=== PATIENT | female | born 1965 | race Caucasian/White ===

== ENCOUNTER → 2017-01-17 | Outpatient (CLI) | payer OTHER ==
--- NOTE | 2017-01-18 10:03 | MRI ---
EXAM DESCRIPTION: MRI left knee CLINICAL HISTORY: Knee pain medially. Twisting injury COMPARISON: None. TECHNIQUE: Multiplanar, multisequence MR images of the left knee FINDINGS: Anterior horn and body medial meniscus tear with oblique tear from the periphery to the superior articular surface along the body and into the inferior periphery along the anterior horn. There is a complex para meniscal cyst which measures roughly 2.3 cm x 1.8 x 0.8 cm subjacent to the medial retinaculum. Mild medial femorotibial chondrosis. Focal full-thickness chondrosis and tiny region of underlying marrow edema in the tibia over about 4 mm along the posterior medial tibial margin. Tear of the anterior horn lateral meniscus along the peripheral third of the meniscus, longitudinal with extension to both the superior and inferior articular surface seen along the anterior horn on the sagittal images. No tear of the body or posterior horn. No lateral femorotibial high-grade chondrosis or focal osteochondral lesion. Mild chondral thinning and lateral condyle Mild patellar chondral thinning and surface irregularity over the patellar apex. Femoral trochlear mild chondral thinning and surface irregularity diffusely without focal osteochondral lesion ACL, PCL, MCL and fibular collateral ligaments are intact Biceps femoris, popliteus and iliotibial band tendons are normal. Chronic fusiform patellar tendon thickening with low signal intensity. Quadriceps tendon and tendons of the posterior medial knee are normal Small joint effusion without focal synovitis or intra-articular body IMPRESSION: Tear of the anterior horn and body medial meniscus with complex parameniscal cyst Peripheral third longitudinal tear anterior horn lateral meniscus Electronically signed by: Ryan Carroll MD 01/18/2017 10:02 AM CDT
== END | disposition home or self-care (01) ==
LOC: MRI 10:40
PROVIDERS: ATTEND Family Medicine
DX: M23.242 Derangement of anterior horn of lateral meniscus due to old tear or injury, left knee (principal)

== ENCOUNTER → 2017-03-06 | Outpatient (CLI) | payer OTHER | END | disposition home or self-care (01) | LOC: RAD 07:50 | PROVIDERS: ATTEND Orthopaedic Surgery | DX: Z01.818 Encounter for other preprocedural examination (principal) ==

== ENCOUNTER 2017-03-14 06:02 | Day surgery (SDC) | payer OTHER ==
--- NOTE | 2017-03-12 08:40 | HP ---
CHIEF COMPLAINT: Left knee pain. HISTORY OF PRESENT ILLNESS: Nathalie is a 51-year-old female with a history of left knee pain that has been going on for several months. She did have a twisting injury back in January. She denies any radiation of pain and now has feelings of instability. She has had no locking, but she does have popping. She has been utilizing conservative measures, however, has failed to gain relief of her pain and symptoms. As such, she has requested operative intervention. After discussing the risks, benefits and alternatives to that, the patient has given informed consent. PAST SURGICAL HISTORY: 1. Carpal tunnel release. 2. Foot surgery. MEDICATIONS: 1. NovoLog. 2. Lantus. 3. Decadron. 4. Vasotec. 5. Tramadol. ALLERGIES: PENICILLIN. CODE STATUS: Full code. IMMUNIZATIONS: Up to date. SOCIAL HISTORY: The patient does not drink, smoke or use any illicit drugs. FAMILY HISTORY: None pertinent to today's complaint. REVIEW OF SYSTEMS: Negative except as indicated in the History of Present Illness. PHYSICAL EXAMINATION: VITAL SIGNS: Blood pressure 161/85. Pulse 118. Height 5'2". Weight 230. MENTAL STATUS: The patient is awake, alert, and is able to give a good history and participate in the physical. The patient is oriented to person, place and time. SKIN: Normal tone and turgor. HEENT: Normocephalic, atraumatic. Pupils equal, round and reactive. Mucosal membranes are moist. NECK: Normal range of motion. No thyromegaly, no lymphadenopathy. CHEST: Normal respiratory excursion. CARDIAC: Regular rate and rhythm. No murmurs, rubs or gallops. MUSCULOSKELETAL: She is extremely tender to palpation today both medially and laterally. She has intact sensation and full extension. She has crepitus throughout her range of motion and pain throughout that arc with flexion to about 120 degrees. She has no varus/valgus or anterior/posterior instability. She has no distinct malalignment. IMAGING: X-rays show no acute bony abnormality. MRI was done which does demonstrate some meniscal tearing as well as chondromalacia. ASSESSMENT: 1. Knee pain. 2. Chondromalacia. 3. Meniscus tearing. PLAN: The plan at this point is for knee arthroscopy. We have discussed the risks, benefits, and alternatives to that and the patient has given informed consent. #[id number] MTDD
[2017-03-14] MEDS ORDERED: SODIUM CHL 0.9% 100ML MINI-BAG 100 ML IVPB ONE (06:16)
[2017-03-14] MEDS ORDERED: ceFAZolin SODIUM 1 GM VIAL ONE ×2 (06:16→10:18)
[2017-03-14] MEDS ORDERED: LACTATED RINGERS 1,000 ML ONE (06:18)
[2017-03-14] MEDS ORDERED: LIDOCAINE 1% 10 ML VIAL INJ ONE (07:00)
[2017-03-14] MEDS ORDERED: DEXAMETHASONE INJ 10 MG/ML VIAL ONE (07:00)
[2017-03-14] MEDS ORDERED: raNITIdine HCL INJ 25 MG/ML VIAL ONE (07:00)
[2017-03-14] MEDS ORDERED: METOCLOPRAMIDE HCL INJ 10 MG/2 ML VIAL ONE (07:00)
[2017-03-14] MEDS ORDERED: PROPOFOL 200 MG/20 ML VIAL IV ONE (07:00)
[2017-03-14] MEDS ORDERED: fentaNYL CITRATE INJ 50 MCG/ML AMP ONE (10:05)
[2017-03-14] MEDS ORDERED: MIDAZOLAM INJ 5 MG/5 ML VIAL ONE (10:05)
[2017-03-14] MEDS ORDERED: BUPIVACAINE 0.25% W/EPI 50 ML VIAL INJ ONE (10:18)
[2017-03-14] MEDS: VANCOMYCIN HCL INJ 1,000 MG VIAL IVPB ONE ×2 (11:42→12:05)
[2017-03-14] MEDS: ceFAZolin SODIUM 1 GM VIAL ONE ×2 (11:42→12:05)
[2017-03-14 13:43] VITALS: O2SAT 97
--- NOTE | 2017-03-14 13:54 | OP ---
DATE OF PROCEDURE: 03/14/17 PREOPERATIVE DIAGNOSIS: 1. Left knee pain. 2. Meniscus tear. 3. Osteoarthritis. POSTOPERATIVE DIAGNOSIS: 1. Left knee pain. 2. Meniscus tear. 3. Osteoarthritis. PROCEDURE: 1. Chondroplasty/debridement. 2. Partial meniscectomy. SURGEON: Rodney Phelan MD. BANDSAW OPERATOR: Fran Flores CST, -C. ANESTHESIA: General. COMPLICATIONS: None. FINDINGS: 1. Large areas of full thickness cartilage loss on the medial femoral condyle. 2. Degenerative tearing and a flap tear of the medial meniscus. 3. Normal anterior cruciate ligament. 4. Normal posterior cruciate ligament. 5. Chondromalacia of the lateral femoral condyle. 6. Degenerative tearing of the lateral meniscus. 7. Normal lateral gutter. 8. Normal suprapatellar pouch. 9. Chondromalacia of the patellofemoral joint. 10. Normal medial gutter. INDICATION: Nathalie has a history of knee pain that has been going on for quite sometime. She has received steroid injections. She has utilized anti- inflammatories as well, however, has failed to get significant relief. Because of her ongoing symptoms, she has requested operative intervention. After discussing the risks, benefits and alternatives to operative therapy, the patient has given informed consent. PROCEDURE: The patient was brought to the Operating Room and placed in supine position. General anesthesia was induced and the patient's leg was sterilely prepped and draped. Following prepping and draping, standard anteromedial and anterolateral portals were established. Diagnostic arthroscopy was carried out with the above findings. Attention was first focused on the medial meniscus. Using a 3.5 mm full radius shave and a 90 degree angled biter, the meniscus was debrided. It was thoroughly probed subsequent to that and there was stable rim. Following that, attention was focused on the medial femoral condyle and debridement was performed. It was probed as well and there were no loose fragments present. The lateral meniscus was debrided in a similar fashion and probed thoroughly. Following that, the knee was thoroughly irrigated and drained and all debris was drained. The, the wounds were closed with Nylon suture. Sterile dressings were placed. The patient was awoken from anesthesia and taken to Recovery. POSTOPERATIVE INSTRUCTIONS: The patient will be partial weightbearing. She will followup with us in two days. We will likely begin physical therapy on her next week. #[id number] [facility]
[2017-03-14 14:24] VITALS: BP 153/86; TEMP 97.7
== END 2017-03-14 14:15 | disposition home or self-care (01) ==
LOC: AMB 06:02
PROVIDERS: ATTEND Orthopaedic Surgery
DX: M25.562 Pain in left knee (principal); M23.204 Derangement of unspecified medial meniscus due to old tear or injury, left knee; M23.201 Derangement of unspecified lateral meniscus due to old tear or injury, left knee; M17.12 Unilateral primary osteoarthritis, left knee; E11.9 Type 2 diabetes mellitus without complications; I10 Essential (primary) hypertension; K21.9 Gastro-esophageal reflux disease without esophagitis; E66.9 Obesity, unspecified; E27.8 Other specified disorders of adrenal gland; Z68.41 Body mass index [BMI] 40.0-44.9, adult; Z88.0 Allergy status to penicillin; Z79.4 Long term (current) use of insulin; Z79.899 Other long term (current) drug therapy
CPT/HCPCS: 01400; 29881; 36416; 82948; J0690; J1100; J2250; J2765; J2780; J3010; J3370; J3490; J7050; J7120

== ENCOUNTER → 2019-05-08 | Outpatient (CLI) | payer OTHER ==
--- NOTE | 2019-05-09 07:22 | RAD ---
EXAM DESCRIPTION: Pelvis, single view CLINICAL HISTORY: M25.562,M25.552 FINDINGS/ IMPRESSION: Normal mineralization. No fracture. No lytic or blastic bony lesion Sacral neural foraminal lines are intact. No advanced arthrosis or focal osteochondral lesion. Transitional L5 with the lateral aspect views with the upper sacrum. Levoscoliosis with asymmetric facet arthrosis on the left in the lower lumbar spine Atherosclerotic vascular calcification. Electronically signed by: Ryan Carroll MD 05/09/2019 7:20 AM CDT
--- NOTE | 2019-05-09 07:25 | RAD ---
EXAM DESCRIPTION: Left knee, 4 radiographs CLINICAL HISTORY: M25.562,M25.552 FINDINGS/ IMPRESSION: Medial and lateral meniscal chondrocalcinosis. Small joint line osteophytes tricompartmental. No severe arthrosis or focal osteochondral lesion. No fracture No joint effusion. Small enthesophyte and dystrophic calcification distal quadriceps. Faint calcification medially in the MCL at the femoral attachment. Atherosclerotic vascular calcification Electronically signed by: Ryan Carroll MD 05/09/2019 7:23 AM CDT
== END ==
LOC: RAD 08:57
PROVIDERS: ATTEND Orthopaedic Surgery
DX: M11.262 Other chondrocalcinosis, left knee (principal); M25.762 Osteophyte, left knee; I70.90 Unspecified atherosclerosis; M41.86 Other forms of scoliosis, lumbar region; M47.896 Other spondylosis, lumbar region

== ENCOUNTER → 2019-05-09 | Outpatient (CLI) | payer OTHER | LOC: LAB.O 09:12 | PROVIDERS: ATTEND Obstetrics & Gynecology | DX: N92.1 Excessive and frequent menstruation with irregular cycle (principal) ==

== ENCOUNTER 2020-07-07 01:52 | Emergency (ER) | payer BC, OTHER ==
[2020-07-07] MEDS ORDERED: SODIUM CHLORIDE 0.9% 1000ML 1,000 ML IVS PRN (02:11)
[2020-07-07] MEDS ORDERED: ONDANSETRON INJ 4 MG/2 ML VIAL IV ONE (02:11)
[2020-07-07] MEDS ORDERED: DEXAMETHASONE INJ 4 MG/ML VIAL IV ONE (02:14)
--- NOTE | 2020-07-07 02:16 | ED.PDOC ---
History of Present Illness - General Chief Complaint: GI Problem Stated Complaint: vomiting since sunday Time Seen by Provider: 07/07/20 01:53 Information Source: patient, RN notes reviewed, Vital Signs reviewed, old records - History of Present Illness Initial Comments: 55 yo F with a pmh of adrenal insufficiency comes in with three days of n/v. no diarrhea, no fever, no pain. states this happened 5 years ago. Only abdominal surgery was hysterectomy after a perforation. no fever, dysuria, cough, sick contacts. no back pain. no hematuria. no change in bowels. States she hasn't eaten in 3 days. Review of Systems - Review of Systems Constitutional: States: malaise. Denies: chills, fever EENTM: Denies: blurred vision, throat pain, throat swelling, mouth pain, mouth swelling Respiratory: States: cough. Denies: short of breath Cardiology: Denies: chest pain, palpitations Gastrointestinal/Abdominal: States: abdominal pain, nausea, vomiting. Denies: diarrhea Genitourinary: Denies: frequency, hematuria Musculoskeletal: Denies: joint swelling, muscle stiffness Skin: Denies: rash Neurological: Denies: headache, numbness, paresthesia, seizure, tingling, tremors, weakness Endocrine: Denies: unexplained weight gain, unexplained weight loss Hematologic/Lymphatic: Denies: blood clots, easy bleeding, easy bruising Past Medical History (General) - Patient Medical History Hx Seizures: No Hx Stroke: No Hx Dementia: No Hx Asthma: No Hx of COPD: No Hx Cardiac Disorders: No Hx Congestive Heart Failure: No Hx Pacemaker: No Hx Hypertension: Yes Hx Thyroid Disease: No Hx Diabetes: Yes Hx Gastroesophageal Reflux: Yes Hx Renal Disease: No Hx Cancer: No Hx of HIV: No Hx Hepatitis C: No Hx MRSA: No MRSA Source:: Sputum Surgical History: appendectomy, colectomy - Vaccination History Hx Tetanus, Diphtheria Vaccination: Yes Hx Influenza Vaccination: No Hx Pneumococcal Vaccination: Yes - 2019 - Social History Hx Tobacco Use: No Hx Alcohol Use: No Hx Substance Use: No Hx Substance Use Treatment: No Hx Depression: No Hx Physical Abuse: No Hx Emotional Abuse: No - Female History Patient : No Family Medical History - Family History Father Hx Family Hypertension: Yes Hx Family Cancer: Yes Physical Exam - Physical Exam General Appearance: Alert, Comfortable, No apparent distress, Well Developed, Well Groomed, Well Hydrated, Well Nourished, Other - central obesity, amador faces Eyes, Ears, Nose, Throat Exam: PERRL/EOMI, normal ENT inspection, TMs normal Neck: non-tender, full range of motion, supple, normal inspection, carotid bruit Respiratory: chest non-tender, lungs clear, normal breath sounds, no respiratory distress, no accessory muscle use Cardiovascular/Chest: normal peripheral pulses, regular rate, rhythm - HR 89, no edema, no gallop, no JVD, no murmur Peripheral Pulses: 2+ Gastrointestinal/Abdominal: normal bowel sounds, non tender, soft, no orga nomegaly, no pulsatile mass Rectal Exam: deferred Back Exam: normal inspection, no CVA tenderness, no vertebral tenderness Extremity: normal range of motion, non-tender, normal inspection Neurologic: piano case maker II-XII nml as tested, no motor/sensory deficits, alert, normal mood/affect, oriented x 3 Skin Exam: normal color, warm/dry Progress - Progress Progress: 07/07/20 02:17 partial ddx: UTI, SBO, gastiritis, URI, pancreatitis, pneumonia, covid. takes 10 mg hydrocrtisone in Am and 0.5 mg dexamethasone at night. Will give dose of dexamethasone now for both nausea and due to her acute illness. also will give zofran and IVF. Pending blood work and CT abdomen. 07/07/20 02:55 patient continued to feel nauseated so given [address] shows nonobstructing hernia, possible viral pneumonia. will get resp panel and CXR. pending UA. CXR shows concern for LLL pneumonia - due to allergies and comorbidities will start on levaquin. PSI score 55. outpatient treatment indicated. Patient has a written plan by employment services director for her steroid dosage increase during acute illness and will start this today. Pt nausea improved. PO tolerant. 07/07/20 04:00 The data reviewed when caring for this patient included: nurse notes, prior records, etc. The history and assessments from nurses notes were reviewed and considered, and the patient's home medication list was also reviewed and considered. My assessment and the results of testing completed here in the ED were discussed with the patient. All questions were answered, and they express understanding of my assessment and the plan. They have been instructed to return if their symptoms worsen, and have been asked to follow up with their primary care physician and employment services director to recheck today's presenting complaint. Strict return precautions given. I have reviewed medication, benefits, alternatives and side effects. Lindsey Nieto DO #[id number] - Results/Orders Results/Orders: CT abd/pelvis with contrast: 1. No evidence of acute intra-abdominal or intrapelvic pathology. 2. Patchy parenchymal opacities within the lung bases bilaterally with occasional small peripheral areas of airspace consolidation and trace right pleural effusion. Imaging features can be seen with viral pneumonia, though are nonspecific and can occur with a variety of infectious and noninfectious processes. Reference: http s://pubs.rsna.org/doi/full/10.1148/ryct.7606419799 3. Small hiatal hernia. 4. Remote cholecystectomy and postsurgical changes of the stomach and small bowel likely related to gastric bypass surgery. 5. Small ventral abdominal wall hernia containing a nondilated loop of transverse colon. There is no evidence of bowel obstruction. 6. Suspect chronic fat necrosis along the right lower anterior abdominal wall. - EKG/XRAY/CT XRAY: chest - Left basilar consolidation with questionable left pleural effusion. Departure - Departure Clinical Impression: Nausea & vomiting Qualifiers: Vomiting type: unspecified Vomiting Intractability: non-intractable Qualified Code(s): R11.2 - Nausea with vomiting, unspecified Pneumonia Qualifiers: Pneumonia type: due to unspecified organism Laterality: left Lung location: lower lobe of lung Qualified Code(s): J18.9 - Pneumonia, unspecified organism Time of Disposition: 04:00 Disposition: Discharge to Home or Self Care Condition: Fair Departure Forms: ED Discharge - Pt. Copy, Patient Portal Self Enrollment Instructions: Pneumonia in Adults, Nausea and Vomiting, Adult (DC) Referrals: Lm Gutierrez MD [Primary Care Provider] - 1-2 Days Prescriptions: Levofloxacin 750 mg PO DAILY #7 tablet Metoclopramide Tab [Reglan Tab] 5 mg PO QID PRN #20 tab PRN Reason: Nausea Home Medications: Ambulatory Orders Hydrocortisone 15 mg PO AM 11/19/13 Norethindrone (Contraceptive) [Helen] 0.35 mg PO HS 02/23/14 Tramadol HCl [Ultram ER] 300 mg PO AM 02/23/14 Hydrocortisone 5 mg PO BEDTIME 01/18/15 Enalapril Maleate [Vasotec Tab] 5 mg PO DAILY 03/12/17 Ferrous Sulfate [Iron High-Potency] 325 mg PO BEDTIME 03/12/17 Insulin Degludec [Tresiba Flextouch] 60 unit SC BEDTIME 03/12/17 Insulin Lispro [Humalog] 20 unit SUBCU TID 03/12/17 Omeprazole 40 mg PO DAILY 03/12/17 Levofloxacin 750 mg PO DAILY #7 tablet 07/07/20 Metoclopramide Tab [Reglan Tab] 5 mg PO QID PRN #20 tab 07/07/20 Additional Instructions: Increase your hydrocortisone and dexamethasone as recommend by your employment services director during illness.
[2020-07-07] MEDS ORDERED: METOCLOPRAMIDE HCL INJ 10 MG/2 ML VIAL IV ONE (03:02)
[2020-07-07] MEDS ORDERED: SODIUM CHLORIDE 0.9% (FLUSH) 10 ML SYG ONE (03:05)
--- NOTE | 2020-07-07 03:24 | CT ---
EXAM: CT abdomen and pelvis with IV contrast CLINICAL DATA: 55-year-old female with vomiting TECHNICAL DATA: Axial CT imaging of the abdomen and pelvis was performed following the administration of intravenous contrast.. Oral contrast was not administered. Sagittal and coronal reconstructed images were then performed. The CT study is performed according to ALARA (as low as reasonably achievable) or ALARA/IMAGE GENTLY, with automatic adjustment of mA and/or kV according to patient size. Performed on: 07/07/2020 at 2:46 AM. Comparison: CT abdomen and pelvis with contrast performed on 11/19/2013 FINDINGS: Lung bases: There are small patchy parenchymal opacities in the lung bases bilaterally with occasional small peripheral areas of airspace consolidation and trace right pleural effusion. Findings are nonspecific but are concerning for an infectious or inflammatory process. There is a small hiatal hernia. Liver:The liver is normal in size and configuration. No focal hepatic abnormalities are identified. Liver attenuation is within normal limits. Spleen:The spleen is normal is size, configuration and attenuation. Gallbladder and bile duct: The gallbladder is surgically absent. There is no biliary ductal dilatation. Pancreas: The pancreas is grossly normal in size and configuration. Adrenal Glands:The adrenal glands are normal in size and configuration. Kidneys:The kidneys are normal in size and configuration. There is no evidence of hydronephrosis. There is no evidence of nephrolithiasis. No definite solid or cystic renal mass lesions are identified. Stomach: There are postsurgical changes of the stomach which may be related to prior gastric bypass surgery. There is a small hiatal hernia. Bowel:The bowel gas pattern is non specific and non obstructive. There are postsurgical changes involving a small bowel loop within the central abdomen. Appendix: The appendix is not well visualized on this examination. There is no CT evidence of acute appendicitis. Free air:There is no evidence of free air. Free fluid: There is no evidence of free fluid. Vasculature: The aorta is normal in caliber and contour. There are atherosclerotic calcifications along the abdominal aorta and iliac arteries. The inferior vena cava is grossly unremarkable. Lymphadenopathy: No pathologic lymphadenopathy is identified. Bladder: The bladder is partially distended and smooth in contour. Reproductive: The uterus is atrophic or surgically absent. Bones: No acute osseous abnormalities are identified. Transitional lumbar vertebral segment. There is moderate to marked disc space narrowing at L5-S1. There is a focal area of sclerosis within the posterior body of T11 similar when compared to the prior study. There are vacuum disc changes at multiple levels. Soft tissues: There are remote postsurgical changes along the anterior abdominal wall and there is diastases of the rectus abdominis muscles. A small ventral abdominal wall hernia is present containing a nondilated loop of transverse colon. There is thickening of the subcutaneous soft tissues along the right lower anterior abdominal wall with associated coarse calcifications likely reflecting chronic fat necrosis. IMPRESSION: 1. No evidence of acute intra-abdominal or intrapelvic pathology. 2. Patchy parenchymal opacities within the lung bases bilaterally with occasional small peripheral areas of airspace consolidation and trace right pleural effusion. Imaging features can be seen with viral pneumonia, though are nonspecific and can occur with a variety of infectious and noninfectious processes. Reference: https://pubs.rsna.org/doi/full/10.1148/ryct.7890097243 3. Small hiatal hernia. 4. Remote cholecystectomy and postsurgical changes of the stomach and small bowel likely related to gastric bypass surgery. 5. Small ventral abdominal wall hernia containing a nondilated loop of transverse colon. There is no evidence of bowel obstruction. 6. Suspect chronic fat necrosis along the right lower anterior abdominal wall. Electronically signed by: Isis Pressley DO 07/07/2020 3:23 AM CDT
--- NOTE | 2020-07-07 03:48 | RAD ---
EXAM DESCRIPTION: Chest,1 View CLINICAL HISTORY: 55 years Female, cough COMPARISON: None TECHNIQUE: Single AP chest radiograph. FINDINGS: Left basilar consolidation with questionable left pleural effusion. Normal cardiomediastinal contour. Normal osseous structures. IMPRESSION: 1. Left basilar consolidation with questionable left pleural effusion. Appearance is consistent with infection. Electronically signed by: Aiden Salas MD 07/07/2020 3:46 AM CDT
[2020-07-07] MEDS ORDERED: levoFLOXacin 750MG IV 750 MG in PREMIX BAG 1 BAG IVPB ONE (03:55)
[2020-07-07] MEDS ORDERED: SODIUM CHLORIDE 0.9% 500ML 500 ML IVS ONE (03:55)
[2020-07-07 05:44] VITALS: BP 121/82; TEMP 98.6; O2SAT 94
== END 2020-07-07 05:45 | disposition home or self-care (01) ==
LOC: ER 01:52
DX: U07.1 COVID-19 (principal); J12.89 Other viral pneumonia; R11.2 Nausea with vomiting, unspecified; I10 Essential (primary) hypertension; E11.9 Type 2 diabetes mellitus without complications; K21.9 Gastro-esophageal reflux disease without esophagitis; Z90.49 Acquired absence of other specified parts of digestive tract; Z79.4 Long term (current) use of insulin; Z79.899 Other long term (current) drug therapy
CPT/HCPCS: 71045; 74177; 80053; 81001; 83690; 84443; 85025; 87486; 87581; 87633; 87635; A4216; J1100; J1956; J2405; J2765; J7030; J7040

== ENCOUNTER → 2020-10-24 | Outpatient (CLI) | payer BC | LOC: LAB.O 12:41 | PROVIDERS: ATTEND Obstetrics & Gynecology | DX: E53.8 Deficiency of other specified B group vitamins (principal) ==